=== PATIENT | female | born 1965 | race Hispanic/Latino ===

== ENCOUNTER → 2018-12-01 | Outpatient (CLI) | payer BC | END | disposition home or self-care (01) | LOC: RAH 09:06 | PROVIDERS: ATTEND Internal Medicine Gastroenterology | DX: K44.9 Diaphragmatic hernia without obstruction or gangrene (principal); R13.10 Dysphagia, unspecified | CPT/HCPCS: 74240 ==

== ENCOUNTER → 2023-06-02 | Outpatient (CLI) | payer BC ==
[~2023-06-02] MED LIST: AMLO-258 PO; ASPI-1005 PO; CHOL100046 PO; LOSA-418 PO; METF-527 PO; METO25 PO; MULT-1203 PO; OMEP40CA21 PO; PARO40TA72 PO; ROSU40TA21 PO; UBID1CAP56 PO
== END | disposition home or self-care (01) ==
LOC: RAH 10:30
PROVIDERS: ATTEND Family Medicine
DX: Z13.820 Encounter for screening for osteoporosis (principal); M85.89 Other specified disorders of bone density and structure, multiple sites; Z78.0 Asymptomatic menopausal state
CPT/HCPCS: 77080